=== PATIENT | male | born 1950 | race Caucasian/White ===

== ENCOUNTER 2017-01-18 10:56 | Outpatient (CLI) | payer OTHER ==
[~2017-01-18] VITALS: Ht 170.2 cm; Wt 86.4 kg
[2017-01-18 11:05] VITALS: BP 81/55; PULSE 50; RESP 16; Ht 170.2 cm; Wt 86.4 kg
[2017-01-18] MEDS ORDERED: LISI10TA2 PO (11:10)
--- NOTE | 2017-01-18 11:57 | CONS ---
Date/Time of Note Date/Time of Note DATE: 01/18/17 TIME: 11:39 Assessment/Plan Assessment/Plan Additional Assessment/Plan Consultation [facility] SUBSEQUENT OUTPATIENT CONSULTATION NOTE DATE OF CONSULTATION: 01/18/17 PLACE OF SERVICE: [facility] IMPRESSION AND PLAN: A very pleasant 66-year-old gentleman, well known to me since 06/27/2016, with comorbid issues including hepatitis C that was treated with Harvoni and a number of other medical issues who has been followed by CT scans, MRI's and ultrasounds of the liver, found to have an elevated alpha- fetoprotein up to summer, being followed for tumor surveillance. Most recent MRI 12/06/16 showed no concerning features. AFP pending. He is otherwise asymptomatic from a liver standpoint. I recommended continued surveillance and I see no indication for acute surgical intervention. I described all the following to the patient and answered all his questions to the best of my ability. I believe that the patient understands and wishes to proceed with the plans. With above assessment, I recommend the followin. AFP check 2. Continued close surveillance with axial imaging (recommend liver MRI Q6 months for another year) as well as AFP checks; if normal in the next 12 months , may consider scaling back to routine guideline recommendations. 3. Follow up with Dr. Quinteros. 4. Follow up with us prn unless new issues with above AFP or imaging Thank you again for allowing us to participate in the care of this very pleasant gentleman and I am certain his wonderful family. If there are any questions, please feel free to call me at [phone]. TOTAL VISIT TIME: 45 minutes of which more than half was spent in [id number] discussion with the patient as well as coordination of care between multiple physicians and providers. HISTORY OF PRESENT ILLNESS: 1. The patient is a very pleasant 66-year-old gentleman with history of hepatitis C treated with Harvoni, who has been followed with liver ultrasounds and found to have slight nodules with the ultrasound. He had a CT scan with IV contrast triple phase done on 04/20/2016 where a nodular cirrhotic liver with splenomegaly was found suggestive of mild portal hypertension. Two nonenhancing hypoattenuating hepatic lesions measuring 6 cm and 11 mm seen which are new compared to CT from 2012. (No contrast on this CT.) Differential was that of a regenerative nodule and interval followup MRI of the abdomen was recommended. Bilateral nonobstructing intracaliceal renal calculi without hydronephrosis was also noted as well as stable bilateral renal cysts and a fat-containing periumbilical hernia which was not significantly changed from 2012. Liver MRI 12/06/16 showed cirrhotic changes of liver with multiple stable enhancing lesions most likely due to perfusion abnormality and no new suspicious hepatic lesions. 2. History of prostate cancer. Status post prostatectomy in 2005 with recurrence that required radiation to the pelvis (details are missing). 3. Renal calculi without hydronephrosis. 4. Bilateral renal cysts. 5. Periumbilical hernia, unchanged from 2012 on recent imaging. 6. Chronic back problems with issues with pain control. 7. Involved with pain management. 8. Wears glasses. 9. Hearing problems on the left. 10. Hepatitis A immune. 11. Hepatitis B immune. 12. Chronic rectal type pain, likely from radiation. 13. History of hepatitis C diagnosed in 2005 with liver biopsy in 2006 and completion of Harvoni regimen for 12 weeks on 02/14/2015 achieving SVR. PAST SURGICAL HISTORY: Status post prostatectomy 09/06/2006 with recurrence in the prostate bed in 2011 needing radiation. ALLERGIES: NO KNOWN DRUG ALLERGIES. MEDICATIONS: Tramadol as needed as well as muscle relaxants. Please also see EHR. SOCIAL HISTORY: The patient is and has no children. He works in air conditioning business. He does not report any current smoking, drinking, or intravenous drug use, but he did use intravenous drugs from age 16 until about 20 to 30 years ago. He is also a former smoker and was drinking, although he has quit. AA member. FAMILY HISTORY: History of breast cancer in his mother who in 1989. There is also a history of stroke and hypertension in the mother. REVIEW OF SYSTEMS: Other than the above-mentioned, there are no other major pertinent positives or pertinent negatives in a complete 14-point review of systems. PHYSICAL EXAMINATION: GENERAL: The patient appears to be a very pleasant gentleman of non- descent, appearing stated age, sitting comfortably in a chair and in no acute distress. He is afebrile. VITAL SIGNS: Stable. BMI 29.8 (previously 04 Jul 2016). HEENT: Head is normocephalic and atraumatic. His extraocular muscles and hearing are grossly intact bilaterally and symmetrically. His sclerae are anicteric. His oral cavity is clear, and his oral mucosa appeared to be pink and moist. He has fair to poor dentition with dental bridges. NECK: Supple. There is no lymphadenopathy or JVD. There is no submental, submandibular or supraclavicular lymphadenopathy. CHEST: Rises symmetrically with each breath, and he is breathing comfortably. There are no audible wheezes, rales or rhonchi on the gross exam. His pulses are palpable in carotids bilaterally and symmetrically, as well as his right wrist. EXTREMITIES: Lower extremities contain no pitting edema around the ankles. ABDOMEN: Soft, nontender and nondistended. There is no evidence of organomegaly, caput medusae, engorged subcutaneous veins, or ascites. There are no peritoneal signs or guarding. SKIN: Appears to be pink and feels warm to touch. NEUROLOGIC: He is awake, alert, and follows commands appropriately. LABORATORY VALUES: Drawn on 04/18/2016 shows alpha fetoprotein 22.3, INR 1.1. platelet count 194. CA 19-9 of 16. CEA 0.6. Electrolytes are normal. Albumin 4.3, CO2 of 19, creatinine 1.06. Labs 01/11/17: Plt 131; alb 4.4; Hg A1c5.8 IMAGING: Pertinent findings on the MRI and CT scans were reviewed above. The patient also has had a noncontrast CT in 2011 and a couple of ultrasounds done as well that do not shed any more light onto the clinical picture. Consultation Date/Type/Reason Admit Date/Time Initial Consult Date Exam/Review of Systems Vital Signs Vitals Vital Signs Date Time Temp Pulse Resp B/P Pulse Ox O2 Delivery O2 Flow Rate FiO2 01/18/17 11:05 98.1 50 16 81/55 95 Room Air DINO BUTLER M.D. Jan 18, 2017 11:57
== END 2017-01-18 16:48 | disposition home or self-care (01) ==
LOC: HPC 10:56
PROVIDERS: ATTEND Transplant Surgery
DX: B19.20 Unspecified viral hepatitis C without hepatic coma (principal); N20.0 Calculus of kidney; N28.1 Cyst of kidney, acquired; K42.9 Umbilical hernia without obstruction or gangrene; Z85.46 Personal history of malignant neoplasm of prostate
CPT/HCPCS: G0463